=== PATIENT | male | born 1970 | race Caucasian/White ===

== ENCOUNTER → 2018-05-27 | Day surgery (SDC) | payer OTHER ==
[~2018-05-27] VITALS: Ht 180.3 cm; Wt 92.5 kg
[~2018-05-27] MED LIST: AUGMENTIN 875-1 EACH PO; PERCOCET 5-3251 EACH PO
--- NOTE | 2018-05-27 17:44 | Operative Report ---
Operative/Inv Procedure Report Surgery Date: 05/27/18 Name of Procedure: Endoscopic sinus surgery with 1. Nasal septal reconstruction 2. Inferior turbinate and an outfracture and submucous resection, bilateral 3. Excision of faheem bullosa middle turbinate, left 4. Middle turbinate reduction, right Pre-Operative Diagnosis: 1. Deviated nasal septum 2. Inferior turbinate hypertrophy, bilateral 3. Faheem bullosa and middle turbinate, left 4. Middle turbinate hypertrophy, right Post-Operative Diagnosis: Same Estimated Blood Loss: less than 50ml Surgeon/Ear Muff Assembler: Hawa Marley MD Anesthesia: general endotracheal tube Specimens: Septum and turbinates Complications: None Condition: Stable on leaving the OR Operative Indication: Deviated nasal septum and turbinate hypertrophy with obstruction of nasal airway Difficulty with breathing at night Snoring, stopping breathing Operative/Procedure Note Note: The patient was brought to the operating room. Placed on the operating room table in supine position. At first timeout was performed identifying the patient, ID numbers and procedure to be performed. Next general oral endotracheal anesthesia was induced. Endotracheal tube was secured with tape over the last corner of the lip. Operating room table was rotated 90 to the left and patient was positioned for septal surgery with head slightly hyperextended and rotated to the right. At first vasoconstriction was carried by application of Afrin spray on cottonoid pledgets. Next nasal septum was injected with 1% lidocaine with 1: 100,000 epinephrine approximately 9 mL was injected on the left and another 6 mL on the right. This followed by placement of cotton pledgets saturated with cocaine solution and Afrin spray. Patient's face was then prepped and draped in routine manner and surgery was performed. A KISS sponge was placed into the nasopharynx for drainage secretions. A Hemitransfixion incision was placed on the left and anterior mucoperichondrial tunnel was elevated followed by posterior mucoperiosteal tunnel. Bony cartilaginous junction was identified and and mucoperiosteal tunnel was elevated on the contralateral side. And anteriorly there was quadrangular cartilage prominence to the left, including adjacent to the maxillary crest , as well as, superiorly adjacent to perpendicular plate of the ethmoid. Posteriorly there was significant vomerine protrusion with a spur to the left. At first quadrangular cartilage was shaved along the floor of the nose followed by chiseling of the maxillary crest. This relieved the inferior obstruction. Superiorly bony cartilaginous junction was and some of the quadrangular cartilage was shaved to relieve superior obstruction. Attention was paid to the vomerine bone. The bone was removed in a piecemeal manner followed by removal of the vomerine spurr. This relieved posterior obstruction. During removal of the spur also small fenestra was created in the posterior septum to serve as a drainage hole. Once the septoplasty was completed, closure was carried with 5-0 chromic simple sutures. Followed by placement of a mattress sutures with 5-0 chromic. Please note that the entire septoplasty was carried with 0 scope as well as directed visualization with a headlight. Next left middle turbinate was reduced along its inferior border including excision of faheem bullosa with direct visualization with 0 scope. This improved ventilation of the middle meatus. Similar procedure was carried on the right. The right middle turbinate was reduced along its inferior border. This improved ventilation of the middle meatus. Next inferior turbinates were then outfractured and excised in submucous maner, first left then right. This improved ventilation of the inferior meatus Surgery was completed. Nasal packing was applied next. Nasal fossa was packed with Telfa saturated with Bactroban ointment. Telfa was stitched anteriorly with 2-0 silk to prevent posterior displacement. Helotene slurry was injected into the middle meatus bilaterally for hemostasis. Surgery was completed. The patient was reawakened, extubated and taken to the recovery room in good condition. There were no complications. Estimated blood was was 30 mL. Findings: Septum deviation to the left - anterior quadrangular cartilage, maxillary crest and posterior vomerine bone Inferior turbinate hypertrophy, bilateral Middle turbinate faheem bullosa, left Middle turbinate hypertrophy, right Discharge Disposition: PACU
== END ==
LOC: STS 03:08
DX: J34.2 Deviated nasal septum (principal); J34.3 Hypertrophy of nasal turbinates; J34.89 Other specified disorders of nose and nasal sinuses; F17.200 Nicotine dependence, unspecified, uncomplicated
CPT/HCPCS: J0131; J0690; J2250; J3490